=== PATIENT | female | born 1945 | race Caucasian/White ===

== ENCOUNTER 2022-09-01 16:49 | Emergency (ER) | payer OTHER, MEDICAID ==
[~2022-09-01] VITALS: Ht 157.5 cm; Wt 77.3 kg
[2022-09-01 16:51] VITALS: BP 150/67
== END 2022-09-02 01:07 | disposition left against medical advice (07) ==
LOC: M ED 16:49
DX: Z53.21 Procedure and treatment not carried out due to patient leaving prior to being seen by health care provider (principal)